=== PATIENT | female | born 1940 | race Caucasian/White ===

== ENCOUNTER 2016-07-18 00:42 | Inpatient (IN) | payer OTHER ==
[~2016-07-18] VITALS: Ht 160 cm; Wt 75.0 kg
[2016-07-18 03:59] LABS: HEMOGLOBIN 14.8 gm/dl (12.3-15.3); RED BLOOD COUNT 4.8 M/UL (4.00-5.10); WHITE BLOOD COUNT 11.8 K/UL (4.5-11.0)
[2016-07-18 04:21] LABS: BUN/CREATININE RATIO 20 (0-10)
[2016-07-18] MEDS ORDERED: ASPIRIN325 MG PO (18:05)
[2016-07-19 05:40] LABS: HEMOGLOBIN 12.8 gm/dl (12.3-15.3); RED BLOOD COUNT 4.21 M/UL (4.00-5.10); WHITE BLOOD COUNT 7.4 K/UL (4.5-11.0)
[2016-07-19 05:59] LABS: BUN/CREATININE RATIO 20 (0-10)
[2016-07-21 03:33] LABS: HEMOGLOBIN 12.2 gm/dl (12.3-15.3); RED BLOOD COUNT 4.03 M/UL (4.00-5.10); WHITE BLOOD COUNT 5.9 K/UL (4.5-11.0)
[2016-07-21 04:10] LABS: BUN/CREATININE RATIO 22 (0-10)
[2016-07-22 04:32] LABS: RED BLOOD COUNT 3.95 M/UL (4.00-5.10); WHITE BLOOD COUNT 6.9 K/UL (4.5-11.0)
[2016-07-22 05:03] LABS: BUN/CREATININE RATIO 28 (0-10)
[2016-07-23 04:41] LABS: HEMOGLOBIN 12.1 gm/dl (12.3-15.3); RED BLOOD COUNT 4.01 M/UL (4.00-5.10); WHITE BLOOD COUNT 6.1 K/UL (4.5-11.0)
[2016-07-23 05:02] LABS: BUN/CREATININE RATIO 18 (0-10)
[2016-07-24 06:41] LABS: BUN/CREATININE RATIO 18 (0-10)
[2016-07-25] MEDS ORDERED: ZOFRAN4 MG PO (13:22)
[2016-07-25] MEDS ORDERED: NORCO 5-325 TA1 EACH PO (13:23)
[2016-07-25] MEDS ORDERED: NORVASC 5 MG TAB5 MG PO (13:23)
[2016-07-25] MEDS ORDERED: LOPRESSOR 50 MG50 MG PO (13:23)
== END 2016-07-25 14:24 | disposition home or self-care (01) | DRG 853 ==
LOC: ER1 00:42 → MED SURG 4 17:45 → PROG CARE 17:45 → MED SURG 4 07-23 17:16
PROVIDERS: Internal Medicine Gastroenterology; Physician Assistant; Physician Assistant Medical; Surgery; ADMIT Internal Medicine
PROC: 0FJ44ZZ Inspection of Gallbladder, Percutaneous Endoscopic Approach (ICD-10-PCS; 2016-07-20)
PROC: BF13YZZ Fluoroscopy of Gallbladder and Bile Ducts using Other Contrast (ICD-10-PCS; 2016-07-20)
PROC: 0DJ08ZZ Inspection of Upper Intestinal Tract, Via Natural or Artificial Opening Endoscopic (ICD-10-PCS; 2016-07-20)
PROC: 0FT40ZZ Resection of Gallbladder, Open Approach (ICD-10-PCS; principal; 2016-07-20 13:45)
DX: A41.9 Sepsis, unspecified organism (principal); J96.91 Respiratory failure, unspecified with hypoxia; K80.32 Calculus of bile duct with acute cholangitis without obstruction; K80.10 Calculus of gallbladder with chronic cholecystitis without obstruction; J98.11 Atelectasis; R79.89 Other specified abnormal findings of blood chemistry; K66.0 Peritoneal adhesions (postprocedural) (postinfection); I10 Essential (primary) hypertension; E87.6 Hypokalemia; E78.5 Hyperlipidemia, unspecified; H54.42 Blindness, left eye, normal vision right eye; Z79.82 Long term (current) use of aspirin; Z82.49 Family history of ischemic heart disease and other diseases of the circulatory system; Z80.3 Family history of malignant neoplasm of breast; E11.65 Type 2 diabetes mellitus with hyperglycemia; F41.9 Anxiety disorder, unspecified; R00.0 Tachycardia, unspecified; R74.0 Nonspecific elevation of levels of transaminase and lactic acid dehydrogenase [LDH]; K76.0 Fatty (change of) liver, not elsewhere classified; E66.9 Obesity, unspecified; K57.10 Diverticulosis of small intestine without perforation or abscess without bleeding; E80.6 Other disorders of bilirubin metabolism
CPT/HCPCS: ECHO; 36415; 36600; 47531; 70450; 71010; 74181; 76000; 76705; 80048; 80053; 80061; 80076; 81001; 82150; 82248; 82550; 82553; 82803; 82977; 83036; 83605; 83690; 83735; 83874; 84132; 84484; 85025; 85027; 85610; 87040; 87086; 93005; 93306; 96361; 96365; 96375; 97110; 97116; 99285; C2617; J1100; J1335; J1885; J2250; J2270; J2370; J2405; J2710; J2795; J3010; J3480; J7030; J7040; J7050; J7120; Q9962

== ENCOUNTER → 2016-08-01 | Outpatient (CLI) | payer OTHER ==
[~2016-08-01] MED LIST: ASPIRIN325 MG PO; LOPRESSOR 50 MG50 MG PO; NORCO 5-325 TA1 EACH PO; NORVASC 5 MG TAB5 MG PO; ZOFRAN4 MG PO
[2016-08-01 11:57] LABS: BUN/CREATININE RATIO 18 (0-10)
== END ==
LOC: LAB 10:36
PROVIDERS: Internal Medicine Gastroenterology
DX: K83.0 Cholangitis (principal)
CPT/HCPCS: 36415; 80053

== ENCOUNTER → 2021-06-06 | Outpatient (CLI) | payer OTHER | LOC: KOH-I 15:28 | DX: R10.9 Unspecified abdominal pain (principal); K59.00 Constipation, unspecified | CPT/HCPCS: 74018 ==

== ENCOUNTER 2021-06-23 13:26 | Emergency (ER) | payer OTHER ==
[2021-06-23 14:52] LABS: HEMOGLOBIN 14.5 gm/dl (12.3-15.3); RED BLOOD COUNT 4.71 M/UL (4.00-5.10); WHITE BLOOD COUNT 8.6 K/UL (4.5-11.0)
[2021-06-23 15:08] LABS: BUN/CREATININE RATIO 23 (0-10)
== END 2021-06-23 16:34 | disposition home or self-care (01) ==
LOC: ER1 13:26
PROVIDERS: Student in an Organized Health Care Education/Training Program
DX: R41.0 Disorientation, unspecified (principal); E78.5 Hyperlipidemia, unspecified; I10 Essential (primary) hypertension
CPT/HCPCS: 70450; 71045; 80053; 81001; 82140; 82550; 82553; 84439; 84443; 84484; 85025; 99285